=== PATIENT | male | born 1995 | race Caucasian/White ===

== ENCOUNTER → 2019-12-16 | Outpatient (CLI) | payer OTHER ==
--- NOTE | 2019-12-16 15:54 | CARD ---
MR#: [id number] Date of Study: 12/16/2019 Ordering Physician: MELA NEGRETE, Referring Physician: Orlando COCHRAN: Yana Santananasra APPROVED REPORT INDICATION Chest Pain Syncope RISK FACTORS Smoking Reason : Patient complained of pain PROCEDURE The patient underwent an Exercise Stress Test using the Alec Protocol. Blood pressure, heart rate, a nd EKG were monitored. An Echocardiogram was performed by civil engineering technician in four stages in quad fashion. At peak stress four se lected images were obtained and placed side by side with resting images for comparison. STRESS ECHO FINDINGS The resting Echocardiogram showed normal left ventricular systolic contractility with an estimated Ej ection Fraction of about 60 %. The Resting Echocardiogram showed normal augmentation of myocardial wall segments using a 16 segment model. The Stress Echocardiogram showed normal augmentation of myocardial wall segments using a 16 segment m jennifer. The Stress Echocardiogram left ventricular systolic contractility has an estimated Ejection Fraction of about 75%. Test Type: Exercise Stress Nurse/Tech: Kirsten Law R.N. Test Indications: chest pain, syncope Cardiac History and Allergies: none Medications: none Medical History: none Resting ECG: SR Resting Heart Rate: 87 bpm Resting Blood Pressure: 128/72mmHg Pretest Chest Pain: No chest pain Nurse/Tech Notes lungs cta, heart tones regular Stress Symptoms pt states had 6/10 chest pressure whlie running in stage 5, resolved with recovery POST EXERCISE Reason for Termination: Reached target heart rate Target HR: Yes Max HR: 183 bpm 93% of Maximum Predicted HR: 197 bpm Exercise duration: 13:53 min:sec, 5 Stage Exercise capacity: 14.8METs Max Blood Pressure: 145/70mmHg Blood Pressure response to exercise: Normal blood pressure response during stress. Heart Rate response to exercise: normal Chest Pain: Yes. see above Arrhythmia: No. ST Change: No. INTERPRETATION Stress EKG Conclusion: Baseline EKG showed sinus rhythm. No ischemic changes at peak stress. No arr hythmias. Preliminary Notification Critical Value: No <Conclusion> Treadmill exercise stress echocardiogram did not show any evidence of ischemia or infarct. Normal left ventricle systolic function with ejection fraction estimated at 60%. Patient had excellent activity tolerance. Low risk for cardiac events. Signed by : Mela Negrete, Electronically Approved : 12/16/2019 15:53:46
== END ==
LOC: ECHO 11:49
PROVIDERS: ATTEND Internal Medicine Cardiovascular Disease
DX: R55 Syncope and collapse (principal)
CPT/HCPCS: 93017; 93350